=== PATIENT | male | born 1960 | race Caucasian/White ===

== ENCOUNTER → 2021-03-11 | Outpatient (CLI) | payer BC ==
--- NOTE | 2021-03-11 11:30 | XR ---
EXAMINATION TYPE: XR ankle complete RT DATE OF EXAM: 03/11/2021 COMPARISON: NONE HISTORY: Pain FINDINGS: Three views of the ankle demonstrate the ankle mortise to be intact and symmetric. The joint spaces are preserved. The osseous structures are intact. Hypertrophic changes of the medial and lateral ma lleolus. Large calcaneal spurs are noted. There is a lucency involving the talar dome. IMPRESSION: 1. Arthropathy with hypertrophic spurring involving the medial lateral malleolus. 2. There is a lucency involving the talar dome suspicious for osteochondritis dissecans. Recommend MR I of the ankle. 3. Large calcaneal spurs.
== END | disposition home or self-care (01) ==
LOC: RADXRYALE 10:57
PROVIDERS: ATTEND Family Medicine
DX: M19.071 Primary osteoarthritis, right ankle and foot (principal); M89.371 Hypertrophy of bone, right ankle and foot; M77.31 Calcaneal spur, right foot

== ENCOUNTER → 2021-04-15 | Outpatient (CLI) | payer BC ==
--- NOTE | 2021-04-16 05:06 | MR ---
EXAMINATION TYPE: MR ankle RT wo con DATE OF EXAM: 04/15/2021 COMPARISON: None HISTORY: Twisted Right ankle 2 years ago, pain in ankle ever since Multiplanar multiecho imaging of the right ankle without contrast. There is mixed signal abnormality in the medial dome of the talus consistent with degenerative cyst f ormation and osteochondritis dissecans. This area overall measures 13 x 17 x 12 mm. The ankle mortise is anatomic. There is narrowing of the ankle joint space. The collateral ligaments are intact. There is plantar and Achilles calcaneal spurring. Achilles tendon is intact. Plantar fascia appears intact . There is no evidence of a fracture. The medial and lateral flexor tendons of the ankle appear intac t. There is small ankle joint effusion. There is small subtalar effusion. IMPRESSION: Mixed signal changes in the medial dome of the talus consistent with osteochondritis dissecans. No si gnificant collapse of the articular surface. There is osteoarthritic narrowing of the ankle joint spa ce. Mild ankle joint effusion. No evidence of ligamentous tear.
== END | disposition home or self-care (01) ==
LOC: RADMRIMAIN 07:45
PROVIDERS: ATTEND Family Medicine
DX: M19.071 Primary osteoarthritis, right ankle and foot (principal)

== ENCOUNTER → 2021-11-09 | Outpatient (CLI) | payer OTHER ==
--- NOTE | 2021-11-09 12:43 | XR ---
EXAMINATION TYPE: XR cervical spine comp DATE OF EXAM: 11/09/2021 TECHNIQUE: Frontal, lateral, oblique, swimmers, and open mouth view of the cervical spine are obtaine d. HISTORY: S13.4XXA work injury . In following injury with pain COMPARISON: None FINDINGS: The cervical spine is visualized in its entirety from C1 thru the top of T1 level, it is s traightened in alignment without evidence of acute fracture or dislocation. Slight grade 1 retrolist hesis C2 on C3 The pre-vertebral soft tissue appears within normal limits. The C1-C2 articulation is within normal limits on the open mouth view. Large bridging anterior osteophytes are present. The o blique images show right-sided neural foraminal narrowing C5-C6 level due to marginal spurring. Mild to moderate left-sided carotid bulb vascular calcification is present. IMPRESSION: No acute fracture or dislocation is seen in the cervical spine.
--- NOTE | 2021-11-09 12:43 | XR ---
EXAMINATION TYPE: XR thoracic spine complete DATE OF EXAM: 11/09/2021 CLINICAL HISTORY: Fall with mid back pain. TECHNIQUE: Frontal, lateral, and swimmer's view of thoracic spine are obtained. COMPARISON: None. FINDINGS: Thoracic spine show satisfactory alignment without evidence of acute fracture or dislocatio n. Vertebral body heights and disc space heights are preserved. Large bridging anterior and lateral osteophytes are present. Visualized ribs are intact bilaterally. IMPRESSION: No acute fracture or dislocation is seen in the thoracic spine.
--- NOTE | 2021-11-09 13:01 | XR ---
EXAMINATION TYPE: XR pelvis AP view DATE OF EXAM: 11/09/2021 CLINICAL HISTORY: Pain since falling injury TECHNIQUE: A single AP view of the pelvis is obtained. COMPARISON: None. FINDINGS: There is no acute fracture/dislocation evident in the pelvis. The sacroiliac joints appea r symmetric and within normal limits. Pubic symphysis is intact. Hip joints show mild to moderate axi al joint space loss with moderate acetabular spurring bilaterally. The overlying soft tissue appears unremarkable. IMPRESSION: There is no acute fracture or dislocation in the pelvis.
== END | disposition home or self-care (01) ==
LOC: RADXRMAIN 11:58
PROVIDERS: ATTEND Emergency Medicine
DX: S30.0XXA Contusion of lower back and pelvis, initial encounter (principal); W19.XXXA Unspecified fall, initial encounter
CPT/HCPCS: 72050; 72072; 72170